=== PATIENT | male | born 1960 ===

== ENCOUNTER → 2018-04-13 21:21 | Outpatient (REF) | payer BC, SELFPAY ==
[2018-04-13 23:12] LABS: Urine N gonorrhoeae NOT DETECTED
[2018-04-13 23:13] LABS: HIV 1 and 2 Antibody NEGATIVE (NEGATIVE); Hep C Virus Ab w/Reflex Quant NEGATIVE s/c (NEGATIVE)
[2018-04-13 23:14] LABS: Urine Chlamydia NOT DETECTED
[2018-04-15 12:40] LABS: HSV 2 IGG AB < 0.90 index (< 0.90)
[2018-04-15 18:40] LABS: RPR Screen Nonreactive (Nonreactive)
== END ==
LOC: LAB 21:21
PROVIDERS: Visit Provider Naturopath
DX: Z11.3 Encounter for screening for infections with a predominantly sexual mode of transmission (principal)
CPT/HCPCS: 36415; 86592; 86695; 86696; 86703; 86803; 87491; 87591

== ENCOUNTER → 2018-07-02 01:39 | Outpatient (REF) | payer BC, SELFPAY ==
[2018-07-02 04:03] LABS: HIV 1 and 2 Antibody NEGATIVE (NEGATIVE); Hep C Virus Ab w/Reflex Quant NEGATIVE s/c (NEGATIVE)
[2018-07-04 12:21] LABS: RPR Screen Nonreactive (Nonreactive)
== END ==
LOC: LAB 01:39
PROVIDERS: Visit Provider Naturopath
DX: Z11.3 Encounter for screening for infections with a predominantly sexual mode of transmission (principal)
CPT/HCPCS: 36415; 86592; 86695; 86696; 86703; 86803